=== PATIENT | female | born 1990 | race American Indian/Alaskan Native ===

== ENCOUNTER 2016-08-04 08:31 | Day surgery (SDC) | payer MEDICAID ==
[~2016-08-04 08:31] MED LIST: DECADRON ONE
[2016-08-04] MEDS ORDERED: ANCEF/STERILE WATER 2 GM/20 ML IV NR (09:00)
[2016-08-04] MEDS ORDERED: LACTATED RINGERS 1,000 ML IV SCH (09:05)
[2016-08-04] MEDS ORDERED: PEPCID PO NR (09:05)
[2016-08-04] MEDS ORDERED: DIPRIVAN 10 MG/ML IV ONE (09:13)
[2016-08-04] MEDS ORDERED: ZOFRAN ONE (09:13)
[2016-08-04] MEDS ORDERED: SUBLIMAZE ONE (09:13)
[2016-08-04] MEDS ORDERED: ZEMURON IV ONE (09:13)
[2016-08-04] MEDS ORDERED: BLOXIVERZ ONE (09:14)
[2016-08-04] MEDS ORDERED: XYLOCAINE MPF 2% ONE (09:14)
[2016-08-04] MEDS ORDERED: TORADOL ONE (09:14)
[2016-08-04] MEDS ORDERED: ROBINUL ONE (09:15)
[2016-08-04] MEDS ORDERED: ANCEF/STERILE WATER 2 GM/20 ML 2 GM/20 ML SYRINGE IV ONE (09:31)
[2016-08-04] MEDS ORDERED: LACTATED RINGERS 1,000 ML ONE (09:31)
[2016-08-04] MEDS ORDERED: PEPCID ONE (09:31)
[2016-08-04] MEDS ORDERED: NACL BACTERIOSTATIC INFILTRATI ONE (09:32)
[2016-08-04] MEDS ORDERED: VERSED ONE (11:16)
[2016-08-04] MEDS: VERSED IV PRN ×2 (11:20→11:22)
[2016-08-04] MEDS ORDERED: NACL 0.9% IR ONE (11:57)
[2016-08-04] MEDS ORDERED: MARCAINE 0.25% INFILTRATI ONE (11:58)
--- NOTE | 2016-08-04 13:14 | Anesthesia Consultation ---
Anesthesia Consult and Med Hx Date of service: 08/04/16 - Airway Anesthetic Teeth Evaluation: Good ROM Head & Neck: Adequate Mental/Hyoid Distance: Adequate Mallampati Class: Class II Intubation Access Assessment: Probably Good - Pulmonary Exam CTA: Yes - Cardiac Exam Cardiac Exam: RRR - Pre-Operative Health Status ASA Pre-Surgery Classification: ASA2 Proposed Anesthetic Plan: General - Pre-Anesthesia Comment Pre-Anesthesia Comments: 6 weeks - Pulmonary Hx Smoking: No Hx Asthma: No COPD: No Hx Pneumonia: No - Cardiovascular System Hx Hypertension: No - Central Nervous System Hx Seizures: No Hx Psychiatric Problems: No - Gastrointestinal Hx Gastroesophageal Reflux Disease: Yes - Endocrine Hx Renal Disease: No Hx End Stage Renal Disease: No Hx Hypothyroidism: No Hx Hyperthyroidism: No - Hematic Hx Anemia: No Hx Sickle Cell Disease: No - Other Systems Hx Alcohol Use: No Hx Cancer: No
--- NOTE | 2016-08-04 13:15 | Anesthesia Day of Surgery ---
Anesthesia Day of Surgery - Day of Surgery Patient Examined: Yes Patient H&P Reviewed: Yes Patient is NPO: Yes
--- NOTE | 2016-08-04 13:15 | Post Anesthesia Evaluation ---
- Post Anesthesia Evaluation Patient Participated: Yes Airway Patent: Yes Stable Respiratory Function: Yes Nausea/Vomiting: No Temp > 96.8F: Yes Pain Manageable: Yes Adequeate Hydration: Yes Anesthesia Complications: No Block Receding Appropriately: Not Applicable Patient on Ventilator: No
[2016-08-04] MEDS ORDERED: PERCOCET 5/325 PO NR (14:17)
[2016-08-04] MEDS ORDERED: PERCOCET 5/325 PO ONE (16:00)
--- NOTE | 2016-08-04 20:04 | Operative Report ---
PREOPERATIVE DIAGNOSIS: Elective sterilization. POSTOPERATIVE DIAGNOSIS: Elective sterilization. PROCEDURE: Laparoscopic bilateral partial salpingectomy. SURGEON: Janna Dickey MD ANESTHESIA: General. ESTIMATED BLOOD LOSS: Minimal. COMPLICATIONS: None. SPECIMENS: Right and left fallopian tubes. IV FLUIDS: 800 mL. URINE OUTPUT: 200 mL clear prior to the beginning of the procedure. DESCRIPTION OF PROCEDURE: The patient was taken to the OR with IV running in place. She was properly identified as herself. She was given adequate anesthesia and placed in dorsal lithotomy position. She was then prepped and draped in normal sterile fashion. Attention was turned to the patient's vagina. The bladder was drained of approximately 200 mL of clear yellow urine. A speculum was inserted into the vagina. The cervix was visualized and grasped with single tooth tenaculum. She was then gently sounded up to approximately 7 cm. It was then removed and acorn cannula was then placed into the uterus. Surgeon's gloves were changed and attention was turned to the patient's abdomen. A small umbilical incision was made. Through this incision, a 5-mm trocar was placed. Laparoscope confirmed intraabdominal placement. Following this, under direct visualization, a second incision was made in the lower left quadrant and a 5-mm trocar was placed here as well. Using the LigaSure device, the tubes were identified and followed to the fimbriated end. The broad ligament was traversed, cauterized, and ligated and the fimbriated ends up to the midportion of tube were ligated and removed. This was done bilaterally. There was excellent hemostasis noted at the end of the procedure. All instruments were then removed from the patient's abdomen and pelvis. The abdomen was deflated and skin was closed with individual sutures of 4-0 Monocryl. Sponge, lap, needle, and instrument counts were correct x 2. The patient tolerated the procedure well and was taken to recovery in stable condition. JOB# [id number] KIMBERLEY/MOHINI
== END 2016-08-04 14:47 | disposition home or self-care (01) ==
LOC: OR 08:31
PROVIDERS: ATTEND Obstetrics & Gynecology
DX: Z30.2 Encounter for sterilization (principal); K21.9 Gastro-esophageal reflux disease without esophagitis
CPT/HCPCS: 58661; 81025; 88302; J0690; J1100; J1885; J2250; J2405; J2704; J2710; J3010; J7120

== ENCOUNTER 2017-01-28 09:04 | Emergency (ER) | payer SELFPAY ==
[2017-01-28 09:49] LABS: Basophils % (Auto) 0.4 % (0.0-1.8); Eosinophils % (Auto) 1.6 % (0.0-4.3); Hematocrit 36.3 % (30.3-42.9); Hemoglobin 12.1 gm/dl (10.1-14.3); Mean Corpuscular HGB Conc 33 % (30-34); Mean Corpuscular Hemoglobin 31 pg (28-32); Mean Corpuscular Volume 92 fl (79-97); Platelet Count 268 K/mm3 (140-440); Red Blood Count 3.95 M/mm3 (3.65-5.03); Red Cell Distribution Width 12.7 % (13.2-15.2)
[2017-01-28 10:08] LABS: Alanine Aminotransferase 23 units/L (7-56); Albumin 3.7 g/dL (3.9-5); Albumin/Globulin Ratio 1.1 %; Alkaline Phosphatase 93 units/L (35-129); Anion Gap 16 mmol/L; BUN/Creatinine Ratio 13.33; Blood Urea Nitrogen 8 mg/dL (7-17); Calcium 8.4 mg/dL (8.4-10.2); Carbon Dioxide 24 mmol/L (22-30); Chloride 103.9 mmol/L (98-107); Glucose 75 mg/dL (65-100); Lipase 27 units/L (13-60); Potassium 3.8 mmol/L (3.6-5.0); Sodium 140 mmol/L (137-145); Total Protein 7.1 g/dL (6.3-8.2)
--- NOTE | 2017-01-28 11:34 | Emergency Department Report ---
ED Abdominal Pain HPI - General Chief Complaint: Abdominal Pain Stated Complaint: SORE THROAT/ABD PAIN Time Seen by Provider: 01/28/17 11:33 Source: patient Mode of arrival: Ambulatory Limitations: No Limitations - History of Present Illness Initial Comments: Patient presents to the emergency department for evaluation of sore throat and epigastric pain. She states that she was treated for peptic ulcer in the past and thinks she has this again. She took 14 days of Prevacid. She describes no episode of GI bleeding. She is not nauseated. At this point she is not complaining of any abdominal pain. She states that her throat feels sore but denies any other URI-type symptoms. Her initial blood pressure was elevated but when she was placed in a room it was normal. MD Complaint: abdominal pain -: week(s) Location: epigastric Radiation: none Migration to: no migration Severity: moderate Quality: aching Consistency: intermittent, now resolved Improves With: nothing Worsens With: nothing Context: other (patient states that she thinks her abdominal pain was due to "drinking 0J") Associated Symptoms: denies other symptoms, other (except for sore throat). denies: nausea, vomiting, diarrhea, fever, chills, constipation, dysuria, hematemesis, hematochezia, melena, hematuria, anorexia, syncope - Related Data Home Medications Medication Instructions Recorded Confirmed Last Taken Pantoprazole [Protonix] 40 mg PO QDAY 08/03/16 08/04/16 08/02/16 Previous Rx's Medication Instructions Recorded Last Taken Type Lansoprazole [Prevacid] 15 mg PO BID #30 cap 01/28/17 Unknown Rx traMADol [Ultram] 50 mg PO Q6HR PRN #10 tablet 01/28/17 Unknown Rx Allergies Allergy/AdvReac Type Severity Reaction Status Date / Time No Known Allergies Allergy Verified 01/28/17 09:25 ED Review of Systems ROS: Stated complaint: SORE THROAT/ABD PAIN Other details as noted in HPI Constitutional: denies: chills, fever Eyes: denies: eye pain, eye discharge, vision change ENT: throat pain. denies: ear pain Respiratory: denies: cough, shortness of breath, wheezing Cardiovascular: chest pain. denies: palpitations Endocrine: no symptoms reported Gastrointestinal: denies: abdominal pain, nausea, diarrhea Genitourinary: denies: urgency, dysuria, discharge Musculoskeletal: denies: back pain, joint swelling, arthralgia Skin: denies: rash, lesions Neurological: denies: headache, weakness, paresthesias Psychiatric: denies: anxiety, depression Hematological/Lymphatic: denies: easy bleeding, easy bruising ED Past Medical Hx - Past Medical History Previous Medical History?: Yes Hx Hypertension: No Hx Congestive Heart Failure: No Hx Diabetes: No Hx Deep Vein Thrombosis: No Hx GERD: Yes Hx Renal Disease: No Hx Sickle Cell Disease: No Hx Seizures: No Hx Asthma: No Hx COPD: No Hx HIV: No - Surgical History Past Surgical History?: Yes Additional Surgical History: Tubal Ligation 08/2016 - Social History Smoking Status: Never Smoker Substance Use Type: Alcohol - Medications Home Medications: Home Medications Medication Instructions Recorded Confirmed Last Taken Type Pantoprazole [Protonix] 40 mg PO QDAY 08/03/16 08/04/16 08/02/16 History Lansoprazole [Prevacid] 15 mg PO BID #30 cap 01/28/17 Unknown Rx traMADol [Ultram] 50 mg PO Q6HR PRN #10 tablet 01/28/17 Unknown Rx ED Physical Exam - General Limitations: No Limitations General appearance: alert, in no apparent distress - Head Head exam: Present: atraumatic, normocephalic - Eye Eye exam: Present: normal appearance. Absent: scleral icterus - ENT ENT exam: Present: normal orophraynx, mucous membranes moist - Neck Neck exam: Present: normal inspection, lymphadenopathy (perhaps mild). Absent: tenderness, meningismus - Respiratory Respiratory exam: Present: normal lung sounds bilaterally. Absent: respiratory distress - Cardiovascular Cardiovascular Exam: Present: regular rate, normal rhythm. Absent: systolic murmur, diastolic murmur, rubs, gallop - GI/Abdominal GI/Abdominal exam: Present: soft, normal bowel sounds. Absent: distended, tenderness, guarding, rebound, rigid - Extremities Exam Extremities exam: Present: normal inspection - Back Exam Back exam: Present: normal inspection - Neurological Exam Neurological exam: Present: alert, oriented X3, CN II-XII intact. Absent: motor sensory deficit - Psychiatric Psychiatric exam: Present: normal affect, normal mood - Skin Skin exam: Present: warm, dry, intact, normal color. Absent: rash ED Course Vital Signs 01/28/17 01/28/17 09:25 12:08 Temperature 98.0 F Pulse Rate 77 Respiratory 20 18 Rate Blood Pressure 112/67 O2 Sat by Pulse 100 Oximetry ED Medical Decision Making - Lab Data Result diagrams: 01/28/17 09:37 01/28/17 09:37 Laboratory Results - last 24 hr 01/28/17 01/28/17 01/28/17 09:37 09:37 09:37 WBC 8.0 RBC 3.95 Hgb 12.1 Hct 36.3 MCV 92 MCH 31 MCHC 33 RDW 12.7 L Plt Count 268 Lymph % (Auto) 23.5 [place] % (Auto) 6.1 Eos % (Auto) 1.6 Baso % (Auto) 0.4 Lymph # 1.9 [place] # 0.5 Eos # 0.1 Baso # 0.0 Seg Neutrophils % 68.4 Seg Neutrophils # 5.5 Sodium 140 Potassium 3.8 Chloride 103.9 Carbon Dioxide 24 Anion Gap 16 BUN 8 Creatinine 0.6 L Estimated GFR > 60 BUN/Creatinine Ratio 13.33 Glucose 75 Calcium 8.4 Total Bilirubin 0.40 AST 37 ALT 23 Alkaline Phosphatase 93 Total Protein 7.1 Albumin 3.7 L Albumin/Globulin Ratio 1.1 Lipase 27 HCG, Qual Negative Critical care attestation.: If time is entered above; I have spent that time in minutes in the direct care of this critically ill patient, excluding procedure time. ED Disposition Clinical Impression: Viral illness Abdominal pain Qualifiers: Abdominal location: epigastric Qualified Code(s): R10.13 - Epigastric pain Disposition: DC-01 TO HOME OR SELFCARE Is pt being admited?: No Does the pt Need Aspirin: No Condition: Stable Instructions: Abdominal Pain (ED), Pharyngitis (ED) Additional Instructions: I didn't find any indication that you likely have a bacterial infection. I would not recommend antibiotics at this time. Rx continue Prevacid either Rx for [id number]. Ultram for pain. Follow-up at primary care physician or [facility]. Prescriptions: Lansoprazole [Prevacid] 15 mg PO BID #30 cap traMADol [Ultram] 50 mg PO Q6HR PRN #10 tablet PRN Reason: Pain Referrals: PRIMARY CARE, [Primary Care Provider] - 3-5 Days Time of Disposition: 12:43
[2017-01-28 12:30] LABS: Bacteria,Urine 4+ /HPF (Negative); Bilirubin,Urine NEG (Negative); Blood,Urine NEG (Negative); Ketones,Urine NEG (Negative); Leukocyte Esterase,Urine MOD (Negative); Mucus,Urine 3+ /HPF; Nitrite,Urine POS (Negative); Protein,Urine <15 mg/dL mg/dL (Negative); Urobilinogen,Urine < 2.0 mg/dL (<2.0)
[2017-01-28 13:10] VITALS: BP 112/61
== END 2017-01-28 12:50 | disposition home or self-care (01) ==
LOC: ED 09:04
DX: B34.9 Viral infection, unspecified (principal); R10.13 Epigastric pain
CPT/HCPCS: 36415; 80053; 81001; 83690; 84703; 85025; 87116; 87430; 99283

== ENCOUNTER 2021-12-31 14:25 | Emergency (ER) | payer MEDICAID ==
[2021-12-31 16:08] VITALS: BP 116/72
== END 2022-01-01 05:17 | disposition left against medical advice (07) ==
LOC: ED 14:25
DX: R42 Dizziness and giddiness (principal); Z53.21 Procedure and treatment not carried out due to patient leaving prior to being seen by health care provider